=== PATIENT | male | born 1965 | race American Indian/Alaskan Native ===

== ENCOUNTER 2021-02-12 20:27 | Emergency (ER) | payer OTHER ==
[2021-02-12] MEDS ORDERED: IBUPROFEN 600 MG TAB PO NR (21:14)
[2021-02-12] MEDS ORDERED: ACETAMINOPHEN 500 MG TAB PO NR (21:14)
[2021-02-12 21:55] VITALS: BP 125/73
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
== END 2021-02-13 00:29 | disposition home or self-care (01) ==
LOC: ED 20:27
DX: S73.101A Unspecified sprain of right hip, initial encounter (principal); M62.830 Muscle spasm of back; R00.1 Bradycardia, unspecified; V89.2XXA Person injured in unspecified motor-vehicle accident, traffic, initial encounter; Y93.89 Activity, other specified; Y92.89 Other specified places as the place of occurrence of the external cause; Y99.8 Other external cause status
CPT/HCPCS: 72100; 99283